=== PATIENT | female | born 1960 | race Caucasian/White ===

== ENCOUNTER → 2017-11-09 | Outpatient (CLI) | payer OTHER | END | disposition home or self-care (01) | LOC: CFH 09:17 | PROVIDERS: ATTEND Nurse Practitioner Family | DX: Z12.31 Encounter for screening mammogram for malignant neoplasm of breast (principal) | CPT/HCPCS: 77067 ==

== ENCOUNTER 2018-09-04 12:25 | Inpatient (IN) | payer OTHER ==
[~2018-09-04] VITALS: Ht 175.3 cm; Wt 140.8 kg
[2018-09-07 13:09] VITALS: BP 139/81
== END 2018-09-07 14:25 | disposition home or self-care (01) | DRG 872 ==
LOC: ED 13:21 → EDIP 13:56 → 3NE 14:42 → DCLOUNGE 09-07 14:10
PROVIDERS: ADMIT Family Medicine; ATTEND Family Medicine
DX: A41.9 Sepsis, unspecified organism (principal); L03.115 Cellulitis of right lower limb; Z68.42 Body mass index [BMI] 45.0-49.9, adult; E66.01 Morbid (severe) obesity due to excess calories; E87.6 Hypokalemia; Z82.49 Family history of ischemic heart disease and other diseases of the circulatory system; Z83.3 Family history of diabetes mellitus; M19.90 Unspecified osteoarthritis, unspecified site
CPT/HCPCS: 36415; 80048; 80053; 83605; 83735; 84145; 85025; 85610; 85730; 87040; 93005; 96374; 99285; G0378; J0295; J1650; J1885; J3370; J3480; J7040; J7120

== ENCOUNTER 2018-12-25 10:31 | Outpatient (CLI) | payer OTHER ==
[~2018-12-25 10:31] MED LIST: ACET325T14 PO; AMOX1TAB64 PO; CEPHALEXIN; DOXY100T PO; NAPR-856 PO
== END 2018-12-25 23:59 | disposition home or self-care (01) ==
LOC: CFH 10:31
PROVIDERS: ATTEND Nurse Practitioner Family
DX: Z12.31 Encounter for screening mammogram for malignant neoplasm of breast (principal)
CPT/HCPCS: 77067

== ENCOUNTER 2019-02-02 09:20 | Emergency (ER) | payer OTHER ==
[~2019-02-02] VITALS: Ht 175.3 cm; Wt 145.0 kg
--- NOTE | 2019-02-02 09:52 | NUR ---
PT HAS CELLUTLITIS OF RIGHT LEG. PA AT BEDSIDE AND MARKED THE RED AREAS ON ANDERS. PT HAS HISTORY OF LYMPHEDEMA AND HAD LEG SURGERY OF JANUARY TO CLOSE VIENS. PT HAD CELLULITIS IN AUGUST, FLARED UP RECENTLY. PRIMARY DR PRESCRIBED DOXYCYCLINE. PT STABLE, NOT IN ANY DISTRESS. PT MEAUSURES SWELLING. STATES IT IS AROUND 64 CM CIRCUM. AROUND CALF.
--- NOTE | 2019-02-02 10:42 | NUR ---
US AT BEDSIDE.
[2019-02-02 11:11] VITALS: BP 127/62
--- NOTE | 2019-02-02 11:12 | NUR ---
Patient/Caregiver given discharge instructions and they have confirmed that they understand the instructions. Patient ambulatory with steady gait.
== END 2019-02-02 11:32 | disposition home or self-care (01) ==
LOC: ED 09:49
DX: L03.115 Cellulitis of right lower limb (principal)
CPT/HCPCS: 99284